=== PATIENT | male | born 1945 | race Caucasian/White ===

== ENCOUNTER → 2019-08-05 | Outpatient (CLI) | payer MEDICARE ==
--- NOTE | 2019-08-06 19:26 | SLEEPCENT ---
DATE OF PROCEDURE: 08/05/2019 ORDERED BY: Rosey Nichole Nocturnal polysomnography was performed for the titration of pressure therapy in this patient with obstructive sleep apnea syndrome. For testing a ResMed Quattro full face mask of medium size was used. 4 cm of water pressure applied to the circuit the lights were extinguished. 7 hours and 48 minutes of data were reviewed. There were 367.5 minutes of sleep identified. Sleep latency was short at 9.5 minutes. REM latency was normal at 61-minutes. Sleep architecture was fairly good with four REM cycles. Overall sleep efficiency was 79.5%. The patient's electrocardiogram showed a sinus rhythm with an average heart rate of 58 beats per minute. EEG showed normal waveforms for awake and sleep. Persistence of respiratory events prompted an increase in C-PAP pressure late in the study in the supine posture. The patient did develop hypopneas without desaturations. Best sleep was appreciated on a C-PAP pressure of +10. Some limb activity noted early in the study limb movement arousal index was only two. IMPRESSION: Obstructive sleep apnea syndrome (G47.33) RECOMMENDATIONS: Nightly use of pressure therapy 10 cm of water.
== END ==
LOC: M SLEEP 19:34
PROVIDERS: ATTEND Nurse Practitioner Family
DX: G47.33 Obstructive sleep apnea (adult) (pediatric) (principal)

== ENCOUNTER 2019-11-13 13:41 | Emergency (ER) | payer OTHER, MEDICARE ==
[~2019-11-13] VITALS: Ht 167.6 cm; Wt 84.1 kg
[2019-11-13] MEDS ORDERED: IBUP-1022 PO (13:52)
[2019-11-13] MEDS ORDERED: OMEP-218 (13:52)
[2019-11-13] MEDS ORDERED: LIDOCAINE 1% MDV 20ML VIAL SC ONE (14:15)
[2019-11-13] MEDS ORDERED: ADACEL/BOOSTRIX VACCINE (DIPHTH/PERTUSS/ACELL/TETANUS)0.5ML SYR (90715) IM ONE (14:15)
[2019-11-13] MEDS ORDERED: CLIN150C14 PO (14:41)
[2019-11-13] MEDS ORDERED: NEOSPORIN TOP OINT 15GM TOP ONE (14:45)
[2019-11-13 14:46] VITALS: BP 164/77
== END 2019-11-13 14:59 | disposition home or self-care (01) ==
LOC: M ED 13:41
DX: S61.412A Laceration without foreign body of left hand, initial encounter (principal); W26.8XXA Contact with other sharp object(s), not elsewhere classified, initial encounter; Y99.0 Civilian activity done for income or pay; Z79.899 Other long term (current) drug therapy

== ENCOUNTER → 2021-05-11 | Outpatient (CLI) | payer MEDICARE ==
[~2021-05-11] MED LIST: CLIN150C17 PO; IBUP-1022 PO; OMEP-218
--- NOTE | 2021-05-11 14:00 | ECGEPIP ---
[facility] Test Date: 2021-05-11 Pat Name: GISSELLE MARIN Department: Room: - Gender: Male [employer] Customer Service: SHENA : 1945 Requested By: IBAN Peralta Order Number: [id number] Reading MD: Abiel Clements Measurements Intervals [place] Rate: 60 P: 38 RI: 142 QRS: 2 QRSD: 76 T: 24 QT: 382 QTc: 382 Interpretive Statements normal sinus rhythm Normal Electronically Signed on 05-11-2021 13:59:53 EDT by Abiel Clements
== END ==
LOC: M EKG 12:30
PROVIDERS: ATTEND Anesthesiology
DX: Z01.818 Encounter for other preprocedural examination (principal); G47.33 Obstructive sleep apnea (adult) (pediatric); Z20.822 Contact with and (suspected) exposure to COVID-19
CPT/HCPCS: 93005; U0003

== ENCOUNTER → 2021-05-11 | Outpatient (CLI) | payer OTHER, MEDICARE | LOC: M LABSMTC 09:40 | PROVIDERS: ATTEND Anesthesiology | DX: Z01.812 Encounter for preprocedural laboratory examination (principal); Z20.822 Contact with and (suspected) exposure to COVID-19 ==

== ENCOUNTER 2021-05-16 06:10 | Day surgery (SDC) | payer MEDICARE ==
[~2021-05-16] VITALS: Ht 170.2 cm; Wt 80.5 kg
[~2021-05-16 06:10] MED LIST changes: +LR 1,000 ML IV ONE; +ceFAZolin SOD 2 GM in IV 1 EA IV ONE
[2021-05-16] MEDS ORDERED: BUPIVACAINE/EPIN 0.25% 30 ML VIAL As Ordered ONE (07:14)
[2021-05-16] MEDS ORDERED: LIDOCAINE 2% 100MG/5ML SDV (FOR ANES.) As Ordered ONE (07:18)
[2021-05-16] MEDS ORDERED: fentaNYL 250 MCG/5 ML INJECTION (J3010) As Ordered ONE (07:18)
[2021-05-16] MEDS ORDERED: propofoL 200 MG/20 ML VIAL As Ordered ONE (07:18)
[2021-05-16] MEDS ORDERED: ROCURONIUM BROMIDE 50 MG/5 ML VIAL As Ordered ONE (07:18)
[2021-05-16] MEDS ORDERED: MIDAZOLAM INJ 2MG/2ML VIAL (J2250 PER 1MG) As Ordered ONE (07:19)
[2021-05-16] MEDS ORDERED: LACRILUBE (AKWA TEARS) OPHTH OINT 3.5 GM As Ordered ONE (07:50)
[2021-05-16] MEDS ORDERED: PHENYLephrine 500MCG 5ML (100MCG/ML) SYRINGE As Ordered ONE (07:56)
[2021-05-16] MEDS ORDERED: SUGAMMADEX SODIUM 500 MG/5 ML VIAL (BRIDION) As Ordered ONE (08:12)
[2021-05-16] MEDS ORDERED: ONDANSETRON 4MG/2ML VIAL As Ordered ONE (08:12)
[2021-05-16] MEDS ORDERED: KETOROLAC 60MG 2ML VIAL As Ordered ONE (08:12)
[2021-05-16] MEDS ORDERED: dexameTHASONE 4 MG/ML 1ML VIAL (J1100 PER 1MG) As Ordered ONE (08:12)
[2021-05-16] MEDS ORDERED: ACETAMINOPHEN 1000MG 100ML IV BTL (OFIRMEV) (J0131 PER 10MG) As Ordered ONE (08:28)
[2021-05-16] MEDS ORDERED: ONDANSETRON 4MG/2ML VIAL IV PRN (09:35)
[2021-05-16] MEDS ORDERED: HYDROMORPHONE HCL 0.5 MG/ 0.5 ML SYRINGE (J1170 PER 1) IV PRN (09:35)
[2021-05-16] MEDS ORDERED: NS 1,000 ML IV SCH (09:35)
[2021-05-16] MEDS ORDERED: fentaNYL 100 MCG/2 ML INJECTION (J3010) IV PRN (09:35)
[2021-05-16] MEDS ORDERED: LR 1,000 ML IV SCH (09:35)
[2021-05-16] MEDS ORDERED: oxyCODONE 5MG TAB PO PRN (09:35)
[2021-05-16] MEDS ORDERED: traMADol 50 MG TAB PO PRN (10:05)
--- NOTE | 2021-05-16 10:53 | RO ---
OPERATIVE NOTE DATE OF OPERATION: 05/16/2021 PREOPERATIVE DIAGNOSIS: Bilateral inguinal hernia. POSTOPERATIVE DIAGNOSIS: Bilateral inguinal hernia. PROCEDURE: Robotic-assisted laparoscopic bilateral inguinal hernia repair with ProGrip mesh. SURGEON: Torres Steven Jr, MD OFFICE ASSISTANCE: Jennifer Mcmullen (provided trocar placement, abdominal wall closure, mesh placement and instrument exchange). ANESTHESIA: General endotracheal anesthesia. EBL: Minimal. FLUIDS: Crystalloid. DISPOSITION: The patient was taken to the recovery room awake, alert and hemodynamically stable. DESCRIPTION OF PROCEDURE: The patient was taken to the operating room, was given general anesthesia. After adequate anesthesia and preoperative antibiotics were given, the patient was prepped and draped in usual sterile fashion. Epigastric incision was made with skin knife; blunt dissection was carried down to fascia. Fascia was entered with Veress needle, insufflated to 15 mm of pressure. Dilating 8 mm trocar was placed and under direct visualization bilateral 8 mm trocars were placed. The patient was placed in steep Trendelenburg position and the peritoneum was taken down over the right side mobilizing a direct inguinal hernia. Once this was nice and mobilized off Molina's ligament and the peritoneum mobilized off the cord structures, the left side was opened up in much the same manner with monopolar cut scissors used to create the flap and then blunt as well as sharp dissection and electrocautery used to mobilize the peritoneum as well as the direct hernia on this side as well. Once this was nicely mobilized and I was able to see a nice window through the preperitoneal space onto the other side, the mesh was cut to the appropriate side, placed into the preperitoneal space and pressed into position and right-sided peritoneum was closed over the repair and the left side just felt that there was a large enough direct that I put two tacking sutures of 3-0 Vicryl on Molina's as well as medially on the pubis to hold the mesh down. The peritoneum was closed over the top of this using 3-0 V-Loc as well. All trocars were removed under direct visualization. 4-0 Vicryl was used to close all skin incisions. Steri-Strips and dry, sterile dressing were applied. The patient was awakened, extubated and brought to the recovery room awake, alert, hemodynamically stable. Sponge and needle counts correct x2.
[2021-05-16 11:29] VITALS: BP 155/72
== END 2021-05-16 11:35 | disposition home or self-care (01) ==
LOC: M SDC 06:10
PROVIDERS: ATTEND Surgery
DX: K40.20 Bilateral inguinal hernia, without obstruction or gangrene, not specified as recurrent (principal); G47.33 Obstructive sleep apnea (adult) (pediatric); Z87.891 Personal history of nicotine dependence
CPT/HCPCS: 49650; C1781; J0131; J0690; J1100; J1885; J2250; J2370; J2405; J3010; S2900

== ENCOUNTER → 2023-05-09 | Outpatient (REF) | payer MEDICARE ==
[~2023-05-09] MED LIST changes: -LR 1,000 ML IV ONE; +OMEP-173; -OMEP-218; -ceFAZolin SOD 2 GM in IV 1 EA IV ONE
== END ==
LOC: M SFHCDERM 12:30
PROVIDERS: ATTEND Nurse Practitioner Family
DX: L57.0 Actinic keratosis (principal); D04.4 Carcinoma in situ of skin of scalp and neck; C44.219 Basal cell carcinoma of skin of left ear and external auricular canal

== ENCOUNTER → 2023-09-13 | Outpatient (REF) | payer MEDICARE | LOC: M SFHCDERM 17:52 | PROVIDERS: ATTEND Dermatology | DX: Z51.89 Encounter for other specified aftercare (principal) ==

== ENCOUNTER → 2024-07-10 | Outpatient (CLI) | payer MEDICARE | LOC: M CARPUL 13:49 | PROVIDERS: ATTEND Nurse Practitioner Adult Health | DX: I48.0 Paroxysmal atrial fibrillation (principal) ==

== ENCOUNTER → 2024-09-07 | Outpatient (CLI) | payer MEDICARE | LOC: M PLAIMG 12:28 | PROVIDERS: ATTEND Nurse Practitioner Adult Health | DX: R05.9 Cough, unspecified (principal) ==